=== PATIENT | male | born 1930 | race Caucasian/White ===

== ENCOUNTER 2017-05-25 20:47 | Inpatient (IN) | payer OTHER ==
[~2017-05-25] VITALS: Ht 170.2 cm; Wt 64.8 kg
[2017-05-25] MEDS ORDERED: SODIUM CHLORIDE 0.9% 500 ML IV ONE (21:02)
[2017-05-25 21:31] LABS: CONDITION Y; DEFINITIVE SEE PRINTOUT; Hematocrit 40.2 % (41.0-53.0); Hemoglobin 13.4 g/dL (13.5-17.5); Mean Corpuscular Hemoglobin 32.6 pg (28.0-32.0); Mean Corpuscular Hgb Conc. 33.4 g/dL (32.0-36.0); Mean Corpuscular Volume 97.7 fL (80.0-100.0); Mean Platelet Volume 12.4 fL (7.4-10.4); Platelet Count (auto) 53 10^3/uL (140-450); Red Cell Distribution Width 17.7 % (11.6-16.0); SUSPECT SEE PRINTOUT; White Blood Cell 5.5 10^3/uL (4.4-10.8)
[2017-05-25 21:36] LABS: Metamyelocytes % 0; Myelocytes % 0; Promyelocytes % 0
[2017-05-25 21:47] LABS: INR 1.1 (0.9-1.15); Partial Thromboplastin Time 31.7 sec (22.64-33.71)
[2017-05-25 21:55] LABS: B-Type Natriuretic Peptide 1514.55 pg/mL (0-100)
[2017-05-25 21:56] LABS: Albumin 2.7 g/dL (3.4-5.0); Bilirubin, Total 1.4 mg/dL (0.2-1.0); Calcium 8.4 mg/dL (8.5-10.1); Magnesium 2.3 mg/dL (1.6-2.6); Potassium 4.3 mmol/L (3.5-5.1); Total Protein 6.1 g/dL (6.4-8.2)
[2017-05-25 21:58] LABS: Temperature: 22.9 C (20.0-25.0)
[2017-05-25 22:17] LABS: Platelet Estimate Decreased; Reactive Lymphocytes 2
[2017-05-25 22:18] LABS: Large Platelets FEW; Ovalocytes FEW
[2017-05-25] MEDS ORDERED: ACETAMINOPHEN 325 MG TAB PO PRN (23:00)
[2017-05-25] MEDS ORDERED: DEXTROSE (50%) 50ML SYRG IV PRN (23:00)
[2017-05-25] MEDS ORDERED: ONDANSETRON HCL 4 MG/2 ML VIAL IV PRN (23:00)
[2017-05-25] MEDS ORDERED: TEMAZEPAM 15 MG CAP PO PRN (23:00)
[2017-05-25] MEDS ORDERED: NITROGLYCERIN 0.4 MG SL TAB SL PRN (23:00)
[2017-05-25] MEDS ORDERED: MORPHINE SULF INJ 2 MG/ML SYRINGE 1ML IV PRN (23:00)
[2017-05-25] MEDS ORDERED: FUROSEMIDE 40 MG/4 ML VIAL IV ONE (23:00)
[2017-05-25] MEDS ORDERED: HYDROcodone-ACET 5/325MG TAB PO PRN (23:00)
[2017-05-25] MEDS ORDERED: ENOXAPARIN SOD 60 MG/0.6 ML SYRINGE SC ONE (23:30)
[2017-05-26] VITALS (7 sets, daily range): BP systolic 106–132; BP diastolic 64–76
[2017-05-26] MEDS: ACCU-CHEK COMFORT CURVE STRIP VI SCH ×4 (00:03→17:45)
[2017-05-26] MEDS ORDERED: ENOXAPARIN SOD 40 MG/0.4 ML SYRINGE SC ONE (00:15)
[2017-05-26] MEDS: InsuLIN REG 1unit/0.01ml Soln (100units/ml) SC SCH ×4 (05:37→17:45)
[2017-05-26] MEDS ORDERED: FUROSEMIDE 20 MG TAB PO SCH (06:00)
[2017-05-26 06:31] LABS: CONDITION Y; Hematocrit 43.2 % (41.0-53.0); Hemoglobin 14.3 g/dL (13.5-17.5); Mean Corpuscular Hgb Conc. 33.2 g/dL (32.0-36.0); Mean Corpuscular Volume 99.4 fL (80.0-100.0); Mean Platelet Volume 13.1 fL (7.4-10.4); Platelet Count (auto) 77 10^3/uL (140-450); Red Cell Distribution Width 18.9 % (11.6-16.0); SUSPECT SEE PRINTOUT; White Blood Cell 5.5 10^3/uL (4.4-10.8)
[2017-05-26 06:38] LABS: Metamyelocytes % 0; Myelocytes % 0; Promyelocytes % 0; Reactive Lymphocytes 0
[2017-05-26 06:57] LABS: RBC Morphology Normal
[2017-05-26 06:58] LABS: Large Platelets FEW; Platelet Estimate Decrea
[2017-05-26 07:07] LABS: Albumin 2.5 g/dL (3.4-5.0); Calcium 8.3 mg/dL (8.5-10.1); Potassium 4.5 mmol/L (3.5-5.1)
[2017-05-26 07:10] LABS: BUN/Creatinine Ratio 18.8
[2017-05-26 07:13] LABS: Bilirubin, Total 1.6 mg/dL (0.2-1.0); Total Protein 5.9 g/dL (6.4-8.2)
[2017-05-26] MEDS ORDERED: ENOXAPARIN SOD 30 MG/0.3 ML SYRINGE SC SCH (10:00)
[2017-05-26] MEDS ORDERED: FUROSEMIDE 40 MG/4 ML VIAL IV SCH ×2 (10:00→22:00)
[2017-05-26] MEDS ORDERED: D5W/SOD CHL 0.45% 1,000 ML IV SCH (10:45)
[2017-05-26 13:54] LABS: Phosphorus 4.4 mg/dL (2.5-4.90); Uric Acid 11.1 mg/dL (3.5-7.2)
[2017-05-26 14:02] LABS: Temperature: 22.7 C (20.0-25.0)
[2017-05-26] MEDS ORDERED: ENOXAPARIN SOD 60 MG/0.6 ML SYRINGE SC SCH ×2 (18:00→22:00)
[2017-05-26] MEDS: ALBUMIN 25% 50 ML IV SCH ×2 (18:00→22:38)
[2017-05-26] MEDS: BUMETANIDE (0.25MG/ML) 4 ML VIAL IV SCH (18:01)
[2017-05-27] MEDS: ACCU-CHEK COMFORT CURVE STRIP VI SCH ×4 (00:28→18:17)
[2017-05-27] MEDS: InsuLIN REG 1unit/0.01ml Soln (100units/ml) SC SCH ×4 (06:00→18:00)
[2017-05-27] MEDS: BUMETANIDE (0.25MG/ML) 4 ML VIAL IV SCH ×2 (06:20→18:22)
[2017-05-27 07:42] LABS: Albumin 3.1 g/dL (3.4-5.0); BUN/Creatinine Ratio 21.3; Bilirubin, Total 2.3 mg/dL (0.2-1.0); Calcium 8.5 mg/dL (8.5-10.1); Total Protein 6.2 g/dL (6.4-8.2)
[2017-05-27 08:06] LABS: PSA Free 0.42 ng/mL; Prostate Specific Antigen 1.4 ng/mL (0.0-4.0)
[2017-05-27 09:58] VITALS: BP 119/66
[2017-05-27] MEDS: ALBUMIN 25% 50 ML IV SCH ×2 (10:35→22:28)
[2017-05-27] MEDS: ENOXAPARIN SOD 60 MG/0.6 ML SYRINGE SC SCH (12:18)
[2017-05-27 18:26] VITALS: BP 104/57
[2017-05-27] MEDS ORDERED: TAMS0.4C36 PO (18:55)
[2017-05-27] MEDS ORDERED: POM (18:55)
[2017-05-27 23:01] VITALS: BP 95/51
[2017-05-28 05:30] VITALS: BP 83/45
[2017-05-28 05:43] LABS: Albumin 3.1 g/dL (3.4-5.0); BUN/Creatinine Ratio 22.8; Bilirubin, Total 2.2 mg/dL (0.2-1.0); Calcium 8.2 mg/dL (8.5-10.1); Potassium 4.4 mmol/L (3.5-5.1); Total Protein 6.1 g/dL (6.4-8.2)
[2017-05-28] MEDS: BUMETANIDE (0.25MG/ML) 4 ML VIAL IV SCH (06:00)
[2017-05-28] MEDS: ACCU-CHEK COMFORT CURVE STRIP VI SCH ×3 (06:00→12:00)
[2017-05-28] MEDS: InsuLIN REG 1unit/0.01ml Soln (100units/ml) SC SCH ×3 (06:00→12:00)
[2017-05-28 09:00] VITALS: BP 87/47
[2017-05-28] MEDS: ALBUMIN 25% 50 ML IV SCH (09:51)
[2017-05-28] MEDS: ENOXAPARIN SOD 60 MG/0.6 ML SYRINGE SC SCH (09:51)
[2017-05-28 13:00] VITALS: BP 89/53
[2017-05-28] MEDS ORDERED: LORazepam 2MG/ML-1ML VIAL IV PRN (13:45)
[2017-05-28] MEDS ORDERED: MORPHINE SULF INJ 2 MG/ML SYRINGE 1ML IV PRN (13:45)
[2017-05-28 15:07] VITALS: BP 89/53
[2017-05-29 09:13] LABS: Vitamin D 25-Hydroxy 24 ng/mL (.); Vitamin D-2 25-Hydroxy <1.0 ng/mL (.)
== END 2017-05-28 16:30 | disposition hospice, home (50) | DRG 682 ==
LOC: EDBD 20:47 → ER 21:00 → TELE 21:01 → TELE-WESTW 05-26 01:09
PROVIDERS: ADMIT Nurse Practitioner; ATTEND Hospitalist
PROC: 5A09357 Assistance with Respiratory Ventilation, Less than 24 Consecutive Hours, Continuous Positive Airway Pressure (ICD-10-PCS; principal; 2017-05-27)
DX: N17.0 Acute kidney failure with tubular necrosis (principal); I50.33 Acute on chronic diastolic (congestive) heart failure; I26.99 Other pulmonary embolism without acute cor pulmonale; E43 Unspecified severe protein-calorie malnutrition; G93.41 Metabolic encephalopathy; E11.22 Type 2 diabetes mellitus with diabetic chronic kidney disease; I95.9 Hypotension, unspecified; D75.1 Secondary polycythemia; J44.9 Chronic obstructive pulmonary disease, unspecified; E86.0 Dehydration; Z66 Do not resuscitate; Z51.5 Encounter for palliative care; N18.4 Chronic kidney disease, stage 4 (severe); J45.909 Unspecified asthma, uncomplicated; R62.7 Adult failure to thrive; R09.02 Hypoxemia; E78.5 Hyperlipidemia, unspecified; Z68.22 Body mass index [BMI] 22.0-22.9, adult; Z90.49 Acquired absence of other specified parts of digestive tract; Z87.891 Personal history of nicotine dependence
CPT/HCPCS: 36415; 51702; 70450; 71010; 76775; 78582; 80053; 82306; 82570; 82962; 83735; 83880; 83970; 84100; 84154; 84156; 84300; 84484; 84550; 85007; 85027; 85379; 85610; 85730; 93005; 93306; 93970; 94660; 96372; 96374; 96375